=== PATIENT | male | born 1990 | race American Indian/Alaskan Native ===

== ENCOUNTER 2022-08-30 18:33 | Emergency (ER) | payer OTHER ==
[2022-08-30] MEDS ORDERED: LORazepam 2 MG/ML SDV IVPUSH ONE ×3 (19:03→20:13)
[2022-08-30] MEDS ORDERED: Sodium Chloride 0.9% 2,000 ML IV SCH (19:15)
[2022-08-30 19:26] LABS: CARBON DIOXIDE,CO2 20.5 mmol/L (21.0-32.0); POTASSIUM,K 3.7 mmol/L (3.5-5.1)
[2022-08-30] MEDS ORDERED: Haloperidol Lactate 5 MG/ML SDV IM ONE ×2 (19:39→19:45)
[2022-08-30 19:57] LABS: ACETAMINOPHEN <2.0 ug/mL
[2022-08-30] MEDS ORDERED: Midazolam 5 MG/ML SDV IVPUSH ONE (20:23)
[2022-08-30] MEDS ORDERED: Etomidate 2 MG/ML 20 ML SDV IVPUSH ONE (20:31)
[2022-08-30] MEDS ORDERED: propofoL 100 ML ONE (20:32)
[2022-08-30] MEDS ORDERED: Succinylcholine 200 MG/10 ML MDV IV ONE (20:32)
[2022-08-30 20:41] LABS: CORONAVIRUS COVID-19 NAA NEGATIVE (NEGATIVE); INFLUENZA A NAA NEGATIVE (NEGATIVE); INFLUENZA B NAA NEGATIVE (NEGATIVE); RESPIRATORY SYNCYTIAL VIR NAA NEGATIVE (NEGATIVE)
[2022-08-30] MEDS ORDERED: propofoL 100 ML IV SCH (20:45)
[2022-08-30 21:23] VITALS: PULSE 126
[2022-08-30] MEDS ORDERED: Sodium Chloride 0.9% 1,000 ML IV SCH ×2 (21:30)
[2022-08-30 21:37] VITALS: BP 123/71
[2022-08-30] MEDS ORDERED: Midazolam 1 MG/ML 2 ML SDV IVPUSH ONE (21:37)
== END 2022-08-30 22:15 ==
LOC: MW.ED 18:33
DX: F15.129 Other stimulant abuse with intoxication, unspecified (principal); Z20.822 Contact with and (suspected) exposure to COVID-19
CPT/HCPCS: 0241U; 31500; 36415; 71045; 74018; 80053; 80143; 80179; 80305; 80307; 82550; 83880; 84484; 85025; 93005; 96361; 96365; 96372; 96375; 96376; 99291; 99292; J0330; J1630; J2060; J2250; J2704; J3490; J7030; 93010